=== PATIENT | female | born 1980 | race Caucasian/White ===

== ENCOUNTER 2017-11-02 16:34 | Emergency (ER) | payer MEDICAID ==
[~2017-11-02] VITALS: Ht 165.1 cm; Wt 67.0 kg
[2017-11-02 16:51] VITALS: BP 118/73
[2017-11-02 17:08] LABS: AMPHETAMINE SCREEN, URINE Positive (Negative); BARBITURATE SCREEN, URINE Negative (Negative); BENZODIAZEPINE SCREEN, URINE Negative (Negative); CANNABINOID SCREEN, URINE Positive (Negative); COCAINE SCREEN, URINE Negative (Negative); METHADONE SCREEN, URINE Negative (Negative); OPIATE SCREEN, URINE Negative (Negative)
[2017-11-02] MEDS ORDERED: LORA-446 PO (17:12)
[2017-11-02] MEDS ORDERED: QUET300T5 PO (17:12)
[2017-11-02 17:14] LABS: MICROSCOPIC INDICATED
[2017-11-02 17:17] LABS: BASOPHILS # (AUTO) 0.05 x10^3/uL (0-0.1); BASOPHILS % (AUTO) 1 % (0-1); EOSINOPHILS # (AUTO) 0.18 x10^3/uL (0-0.4); EOSINOPHILS % (AUTO) 2 % (1-7); LYMPHOCYTES # (AUTO) 2.12 x10^3/uL (1-3.4); LYMPHOCYTES % (AUTO) 27 % (22-44); MD NO; MEAN CORPUSCULAR HEMOGLOBIN 30.4 pg (27.0-34.8); MEAN CORPUSCULAR HGB CONC 33.2 g/dL (32.4-35.8); MEAN CORPUSCULAR VOLUME 91.7 fL (80-100); MEAN PLATELET VOLUME 7.2 fL (7.4-10.4); MONOCYTES # (AUTO) 0.81 x10^3/uL (0.2-0.8); MONOCYTES % (AUTO) 10 % (2-9); NEUTROPHILS # (AUTO) 4.75 x10^3/uL (1.8-6.8); NEUTROPHILS % (AUTO) 60 % (42-75); PLATELET COUNT 368 x10^3/uL (130-400); RED BLOOD COUNT 4.66 x10^6/uL (3.82-5.3); RED CELL DISTRIBUTION WIDTH 13.7 % (9.6-15.2)
[2017-11-02 17:22] LABS: CULTURE INDICATED? YES
[2017-11-02 17:26] LABS: ALBUMIN 3.6 g/dL (3.4-5.0); ANION GAP 6 mmol/L (5-15); CALCIUM 8.5 mg/dL (8.5-10.1); CHLORIDE 104 mmol/L (98-107)
[2017-11-02 17:27] LABS: SALICYLATE LEVEL < 1.7 mg/dL (2.8-20.0)
[2017-11-02 17:32] LABS: ACETAMINOPHEN < 2 mcg/mL (10-30); ALANINE AMINOTRANSFERASE 133 U/L (12-78); ALKALINE PHOSPHATASE 72 U/L (45-117); BILIRUBIN,TOTAL 0.6 mg/dL (0.2-1.0); TOTAL PROTEIN 7.3 g/dL (6.4-8.2)
[2017-11-02] MEDS ORDERED: LORazepam 1MG TABLET PO ONE (18:30)
[2017-11-02] MEDS ORDERED: LORazepam 1MG TABLET ONE (18:41)
== END 2017-11-02 19:52 | disposition home or self-care (01) ==
LOC: ED 19:10
DX: F41.1 Generalized anxiety disorder (principal); R06.4 Hyperventilation; Z87.891 Personal history of nicotine dependence
CPT/HCPCS: 36415; 80053; 80307; 80329; 81001; 84703; 85025; 87086; 99284; G0480

== ENCOUNTER 2017-11-20 15:25 | Emergency (ER) | payer MEDICAID ==
[~2017-11-20] VITALS: Ht 165.1 cm; Wt 65.0 kg
[~2017-11-20 15:25] MED LIST: LORA-446 PO; QUET300T5 PO
[2017-11-20 15:29] VITALS: BP 117/72
== END 2017-11-20 15:55 | disposition home or self-care (01) ==
LOC: ED 15:49
DX: L03.113 Cellulitis of right upper limb (principal); F19.90 Other psychoactive substance use, unspecified, uncomplicated
CPT/HCPCS: 99283

== ENCOUNTER 2018-10-05 00:17 | Emergency (ER) | payer MEDICAID ==
[~2018-10-05] VITALS: Ht 165.1 cm; Wt 63.0 kg
--- NOTE | 2018-10-05 00:48 | NUR ---
Assessment made. seen by ERP.
[2018-10-05] MEDS ORDERED: LIDOCAINE-MPF 1%, 5ML ONE (00:49)
--- NOTE | 2018-10-05 00:53 | NUR ---
PA at bedside for I & D.
[2018-10-05] MEDS ORDERED: HYDROcodone/APAP 5/325 TABLET PO ONE (01:00)
[2018-10-05] MEDS ORDERED: CLINDAMYCIN 300 MG CAPSULE PO ONE (01:00)
[2018-10-05] MEDS ORDERED: LIDOCAINE 1%, 10ML INFIL ONE (01:00)
[2018-10-05] MEDS ORDERED: CLINDAMYCIN 300 MG CAPSULE ONE (01:07)
[2018-10-05] MEDS ORDERED: HYDROcodone/APAP 5/325 TABLET ONE (01:07)
--- NOTE | 2018-10-05 01:19 | NUR ---
I & D done. medicated. patient discharged with prescriptions and instruction. verbalized understanding.
[2018-10-05 01:20] VITALS: BP 137/86
== END 2018-10-05 01:22 | disposition home or self-care (01) ==
LOC: ED 00:54
DX: N76.4 Abscess of vulva (principal); F15.10 Other stimulant abuse, uncomplicated; Z72.9 Problem related to lifestyle, unspecified; F17.200 Nicotine dependence, unspecified, uncomplicated
CPT/HCPCS: 56405; 93005; 99284; J3490

== ENCOUNTER 2018-11-10 12:16 | Inpatient (IN) | payer MEDICAID ==
[~2018-11-10] VITALS: Ht 165.1 cm; Wt 64.2 kg
--- NOTE | 2018-11-10 12:37 | NUR ---
SUPPLIES IN ROOM SECURED BEHIND PULL-DOWN DOOR. SITTER IN DIRECT VIEW OF PT
[2018-11-10 13:08] LABS: BASOPHILS # (AUTO) 0.04 x10^3/uL (0-0.1); BASOPHILS % (AUTO) 0 % (0-1); EOSINOPHILS # (AUTO) 0.11 x10^3/uL (0-0.4); EOSINOPHILS % (AUTO) 1 % (1-7); LYMPHOCYTES # (AUTO) 1.53 x10^3/uL (1-3.4); LYMPHOCYTES % (AUTO) 14 % (22-44); MD NO; MEAN CORPUSCULAR HEMOGLOBIN 31.1 pg (27.0-34.8); MEAN CORPUSCULAR VOLUME 94.4 fL (80-100); MEAN PLATELET VOLUME 6.6 fL (7.4-10.4); MONOCYTES # (AUTO) 0.86 x10^3/uL (0.2-0.8); MONOCYTES % (AUTO) 8 % (2-9); NEUTROPHILS # (AUTO) 8.53 x10^3/uL (1.8-6.8); NEUTROPHILS % (AUTO) 77 % (42-75); PLATELET COUNT 366 x10^3/uL (130-400); RED BLOOD COUNT 5.03 x10^6/uL (3.82-5.3); RED CELL DISTRIBUTION WIDTH 13.8 % (9.6-15.2)
--- NOTE | 2018-11-10 13:14 | NUR ---
KATHARINE LOYA. PT IN ROOM AT THIS TIME. SITTER IN HALLWAY. UA COLLECTED AND SENT. MEAL TRAY PROVIDED TO PT.
[2018-11-10 13:18] LABS: ALANINE AMINOTRANSFERASE 118 U/L (12-78); ALBUMIN 3.9 g/dL (3.4-5.0); ANION GAP 6 mmol/L (5-15); CHLORIDE 108 mmol/L (98-107); CREATININE 0.85 mg/dL (0.55-1.02)
[2018-11-10 13:19] LABS: SALICYLATE LEVEL < 1.7 mg/dL (2.8-20.0)
[2018-11-10 13:23] LABS: ALKALINE PHOSPHATASE 71 U/L (45-117); BILIRUBIN,TOTAL 0.6 mg/dL (0.2-1.0); TOTAL PROTEIN 8.2 g/dL (6.4-8.2)
[2018-11-10 13:53] LABS: AMPHETAMINE SCREEN, URINE Positive (Negative); BARBITURATE SCREEN, URINE Negative (Negative); BENZODIAZEPINE SCREEN, URINE Positive (Negative); CANNABINOID SCREEN, URINE Positive (Negative); COCAINE SCREEN, URINE Negative (Negative); METHADONE SCREEN, URINE Negative (Negative); OPIATE SCREEN, URINE Negative (Negative)
--- NOTE | 2018-11-10 14:10 | NUR ---
TO CT WITH RN
[2018-11-10 14:28] LABS: CULTURE INDICATED? YES; MICROSCOPIC AUTO
[2018-11-10] MEDS ORDERED: CEFDINIR 300 MG CAPSULE ONE (14:51)
--- NOTE | 2018-11-10 14:59 | NUR ---
[facility] called as patient has medicaid HPN insurance. All information provided and awaiting a call back at this time for ETA of mobile assesser.
[2018-11-10] MEDS ORDERED: CEFDINIR 300 MG CAPSULE PO ONE (15:00)
--- NOTE | 2018-11-10 15:01 | NUR ---
MEDICATED PER MAR. PROVIDED WARM BLANKETS
--- NOTE | 2018-11-10 15:02 | NUR ---
Patient with medicaid expansion. Will call other service at this time.
--- NOTE | 2018-11-10 15:08 | NUR ---
Medicaid HPN exansion called and mobile assesser requested
--- NOTE | 2018-11-10 16:23 | NUR ---
Mobile asseser in ED evaluating patient.
--- NOTE | 2018-11-10 16:32 | NUR ---
[facility] PSYCHIATRIST EVALUATING PT
[2018-11-10] MEDS ORDERED: LORazepam 1MG TABLET ONE (17:07)
--- NOTE | 2018-11-10 17:12 | NUR ---
PT CRYING SINCE PSYCHIATRIST SPEAKING WITH HER. ASKING FOR SOMETHING FOR ANXIETY. MEDICATED PER MAR
[2018-11-10] MEDS ORDERED: LORazepam 1MG TABLET PO ONE (17:30)
--- NOTE | 2018-11-10 17:56 | NUR ---
PT PROVIDED LUNCH TRAY. CRYING SLOWED DOWN
--- NOTE | 2018-11-10 18:42 | NUR ---
AFTER EATING DINNER, PT BACK TO SLEEP
--- NOTE | 2018-11-10 19:00 | NUR ---
REPORT RC'VD FROM ANN MARIE LOYA. PT RESTING IN [facility], NO S/S OF DISTRESS AT THIS TIME.
[2018-11-10] MEDS ORDERED: QUETIAPINE 25MG TABLET PO PRN (19:30)
[2018-11-10] MEDS ORDERED: QUETIAPINE 100MG TABLET ONE (20:20)
[2018-11-10] MEDS ORDERED: NICOTINE 21 MG/24 HR PATCH.TD24 ONE (20:20)
[2018-11-10] MEDS ORDERED: DIVALPROEX 500 MG TAB.ER.24H ONE (20:20)
[2018-11-10] MEDS ORDERED: NICOTINE 14MG/24 HR PATCH.TD24 ONE (20:21)
[2018-11-10] MEDS ORDERED: NICOTINE 14MG/24 HR PATCH.TD24 TD PRN (20:30)
[2018-11-10] MEDS: DIVALPROEX 500 MG TAB.ER.24H PO SCH (21:53)
[2018-11-10] MEDS: QUETIAPINE 100MG TABLET PO SCH (21:53)
--- NOTE | 2018-11-10 21:59 | NUR ---
PT REQUESTING TO HAVE IV OUT; OKAY TO REMOVE PER DR. VEGA. PT REFUSED 300MG OF SEROQUEL, STATES, "IT KNOCKS ME OUT". AGREED TO TAKE 200MG.
[2018-11-10] MEDS ORDERED: ACETAMINOPHEN 325 MG TABLET PO PRN (22:00)
[2018-11-11 00:45] VITALS: BP 124/82
[2018-11-11 07:56] VITALS: BP 106/74
[2018-11-11] MEDS: DIVALPROEX 500 MG TAB.ER.24H PO SCH ×2 (08:25→20:49)
[2018-11-11] MEDS ORDERED: CEFDINIR 300 MG CAPSULE PO ONE (09:00)
[2018-11-11 19:18] VITALS: BP 115/81
[2018-11-11] MEDS: CEFDINIR 300 MG CAPSULE PO SCH (20:49)
[2018-11-11] MEDS: QUETIAPINE 100MG TABLET PO SCH (20:50)
[2018-11-11] MEDS ORDERED: QUETIAPINE 100MG TABLET PO SCH (21:00)
[2018-11-12] MEDS: DIVALPROEX 500 MG TAB.ER.24H PO SCH ×2 (08:04→19:54)
[2018-11-12] MEDS: CEFDINIR 300 MG CAPSULE PO SCH (08:04)
[2018-11-12 08:05] VITALS: BP 93/59
[2018-11-12] MEDS: BUPROPION SR 150 MG TABLET PO SCH (13:04)
[2018-11-12] MEDS: ERTAPENEM 1 GM in SODIUM CHLORIDE 0.9% 50 ML IV SCH (17:26)
[2018-11-12 19:28] VITALS: BP 102/67
[2018-11-12] MEDS: LORazepam 1MG TABLET PO PRN (19:54)
[2018-11-12] MEDS: QUETIAPINE 100MG TABLET PO SCH (19:54)
[2018-11-13] MEDS: ROPINIROLE 0.25MG TABLET PO PRN ×2 (00:03→20:15)
[2018-11-13] MEDS: LORazepam 1MG TABLET PO PRN ×3 (01:14→20:15)
[2018-11-13 01:27] VITALS: BP 98/64
[2018-11-13 07:00] VITALS: BP 111/72
[2018-11-13] MEDS: DIVALPROEX 500 MG TAB.ER.24H PO SCH ×2 (10:08→20:15)
[2018-11-13] MEDS: BUPROPION SR 150 MG TABLET PO SCH (10:08)
[2018-11-13] MEDS: ERTAPENEM 1 GM in SODIUM CHLORIDE 0.9% 50 ML IV SCH (16:11)
[2018-11-13] MEDS: QUETIAPINE 100MG TABLET PO SCH (20:14)
[2018-11-13 20:18] VITALS: BP 114/75
[2018-11-14 01:01] VITALS: BP 116/78
[2018-11-14 08:07] LABS: BASOPHILS # (AUTO) 0.03 x10^3/uL (0-0.1); BASOPHILS % (AUTO) 1 % (0-1); EOSINOPHILS # (AUTO) 0.11 x10^3/uL (0-0.4); EOSINOPHILS % (AUTO) 2 % (1-7); LYMPHOCYTES # (AUTO) 1.46 x10^3/uL (1-3.4); LYMPHOCYTES % (AUTO) 28 % (22-44); MD NO; MEAN CORPUSCULAR HEMOGLOBIN 30.6 pg (27.0-34.8); MEAN CORPUSCULAR HGB CONC 33.1 g/dL (32.4-35.8); MEAN CORPUSCULAR VOLUME 92.5 fL (80-100); MEAN PLATELET VOLUME 6.6 fL (7.4-10.4); MONOCYTES % (AUTO) 11 % (2-9); NEUTROPHILS # (AUTO) 3.05 x10^3/uL (1.8-6.8); NEUTROPHILS % (AUTO) 58 % (42-75); PLATELET COUNT 365 x10^3/uL (130-400); RED BLOOD COUNT 4.51 x10^6/uL (3.82-5.3); RED CELL DISTRIBUTION WIDTH 13.6 % (9.6-15.2)
[2018-11-14 08:17] LABS: ALANINE AMINOTRANSFERASE 211 U/L (12-78); ALBUMIN 3.1 g/dL (3.4-5.0); ANION GAP 7 mmol/L (5-15); CALCIUM 8.7 mg/dL (8.5-10.1); CHLORIDE 106 mmol/L (98-107); CREATININE 0.68 mg/dL (0.55-1.02)
[2018-11-14 08:19] LABS: ALKALINE PHOSPHATASE 60 U/L (45-117); BILIRUBIN,TOTAL 0.4 mg/dL (0.2-1.0); TOTAL PROTEIN 7.4 g/dL (6.4-8.2)
[2018-11-14 08:45] VITALS: BP 95/63
[2018-11-14] MEDS: DIVALPROEX 500 MG TAB.ER.24H PO SCH ×2 (09:00→20:10)
[2018-11-14] MEDS: BUPROPION SR 150 MG TABLET PO SCH (09:11)
[2018-11-14] MEDS: LORazepam 1MG TABLET PO PRN ×2 (09:16→16:58)
[2018-11-14 12:16] VITALS: BP 97/64
[2018-11-14] MEDS: ERTAPENEM 1 GM in SODIUM CHLORIDE 0.9% 50 ML IV SCH (16:58)
[2018-11-14 19:35] VITALS: BP 100/62
[2018-11-14] MEDS: QUETIAPINE 100MG TABLET PO SCH (20:10)
[2018-11-14] MEDS: ROPINIROLE 0.25MG TABLET PO PRN (20:10)
[2018-11-14] MEDS ORDERED: ROPINIROLE 0.5MG TABLET PO PRN (23:30)
[2018-11-14] MEDS ORDERED: ROPINIROLE 0.25MG TABLET PO ONE (23:30)
[2018-11-15 04:34] VITALS: BP 100/68
[2018-11-15 07:39] VITALS: BP 111/73
[2018-11-15] MEDS: LORazepam 1MG TABLET PO PRN ×2 (09:13→17:32)
[2018-11-15] MEDS: DIVALPROEX 500 MG TAB.ER.24H PO SCH (09:13)
[2018-11-15] MEDS: BUPROPION SR 150 MG TABLET PO SCH (09:13)
[2018-11-15] MEDS ORDERED: ACETAMINOPHEN 325 MG TABLET PO PRN (11:00)
[2018-11-15] MEDS ORDERED: ACETAMINOPHEN 325 MG TABLET ONE (11:04)
[2018-11-15 14:44] VITALS: BP 116/76
[2018-11-15] MEDS: ERTAPENEM 1 GM in SODIUM CHLORIDE 0.9% 50 ML IV SCH (17:32)
[2018-11-15 19:22] VITALS: BP 109/77
[2018-11-15] MEDS: QUETIAPINE 100MG TABLET PO SCH (20:03)
[2018-11-16 02:13] VITALS: BP 104/71
[2018-11-16 07:10] VITALS: BP 114/79
[2018-11-16] MEDS: LORazepam 1MG TABLET PO PRN ×2 (09:54→17:02)
[2018-11-16] MEDS: BUPROPION SR 150 MG TABLET PO SCH (09:54)
[2018-11-16 12:35] VITALS: BP 103/69
[2018-11-16] MEDS: ERTAPENEM 1 GM in SODIUM CHLORIDE 0.9% 50 ML IV SCH (17:01)
== END 2018-11-16 19:30 | DRG 885 ==
LOC: ED 14:32 → EDIP 21:59 → 2N 23:30 → 3NE 11-12 14:46
PROVIDERS: ADMIT Family Medicine; ATTEND Family Medicine
DX: F31.9 Bipolar disorder, unspecified (principal); F11.20 Opioid dependence, uncomplicated; F15.20 Other stimulant dependence, uncomplicated; N39.0 Urinary tract infection, site not specified; R45.851 Suicidal ideations; B19.20 Unspecified viral hepatitis C without hepatic coma; F17.210 Nicotine dependence, cigarettes, uncomplicated; F41.0 Panic disorder [episodic paroxysmal anxiety]; F41.1 Generalized anxiety disorder; K76.0 Fatty (change of) liver, not elsewhere classified; N94.6 Dysmenorrhea, unspecified; S00.11XA Contusion of right eyelid and periocular area, initial encounter; Y04.0XXA Assault by unarmed brawl or fight, initial encounter; Y93.89 Activity, other specified; Y92.89 Other specified places as the place of occurrence of the external cause; Y99.8 Other external cause status; Z59.0 Homelessness; Z79.899 Other long term (current) drug therapy; Z16.12 Extended spectrum beta lactamase (ESBL) resistance
CPT/HCPCS: 36415; 70486; 76700; 80053; 80074; 80307; 81001; 84703; 85025; 87040; 87077; 87086; 87184; 87186; 87521; 87806; 99285; G0378; J1335; G0475

== ENCOUNTER 2019-07-13 11:30 | Emergency (ER) | payer MEDICAID ==
[~2019-07-13] VITALS: Ht 165.1 cm; Wt 64.0 kg
[2019-07-13 12:10] VITALS: BP 150/96
[2019-07-13 12:53] LABS: BASOPHILS # (AUTO) 0.04 x10^3/uL (0-0.1); BASOPHILS % (AUTO) 1 % (0-1); EOSINOPHILS % (AUTO) 1 % (1-7); LYMPHOCYTES # (AUTO) 1.66 x10^3/uL (1-3.4); LYMPHOCYTES % (AUTO) 19 % (22-44); MD NO; MEAN CORPUSCULAR HEMOGLOBIN 28.7 pg (27.0-34.8); MEAN CORPUSCULAR HGB CONC 32.8 g/dL (32.4-35.8); MEAN CORPUSCULAR VOLUME 87.4 fL (80-100); MEAN PLATELET VOLUME 6.6 fL (7.4-10.4); MONOCYTES # (AUTO) 0.65 x10^3/uL (0.2-0.8); MONOCYTES % (AUTO) 8 % (2-9); NEUTROPHILS # (AUTO) 6.19 x10^3/uL (1.8-6.8); NEUTROPHILS % (AUTO) 72 % (42-75); PLATELET COUNT 440 x10^3/uL (130-400); RED BLOOD COUNT 4.78 x10^6/uL (3.82-5.3); RED CELL DISTRIBUTION WIDTH 16.2 % (9.6-15.2)
--- NOTE | 2019-07-13 13:01 | NUR ---
PT TO ED WITH SI AND PREVIOUS SA, PT STATES SHE WOULD OVERDOSE ON HEROIN AND HAS ATTEMPTED TO DO SO IN THE PAST. ALL BELONGINGS REMOVED AND ONE BAG PLACED IN LOCKER. BF AT BEDSIDE. PT GIVEN MENSTRUAL PADS. SITTER AT DOORWAY. URINE SAMPLE WALKED TO LAB.
[2019-07-13 13:02] LABS: ALBUMIN 3.3 g/dL (3.4-5.0); ANION GAP 4 mmol/L (5-15); CALCIUM 8.5 mg/dL (8.5-10.1); CHLORIDE 111 mmol/L (98-107); CREATININE 0.63 mg/dL (0.55-1.02)
[2019-07-13 13:13] LABS: AMPHETAMINE SCREEN, URINE Positive (Negative); BARBITURATE SCREEN, URINE Negative (Negative); BENZODIAZEPINE SCREEN, URINE Negative (Negative); CANNABINOID SCREEN, URINE Positive (Negative); COCAINE SCREEN, URINE Negative (Negative); METHADONE SCREEN, URINE Negative (Negative); OPIATE SCREEN, URINE Negative (Negative)
[2019-07-13 13:19] LABS: SALICYLATE LEVEL < 1.7 mg/dL (2.8-20.0)
--- NOTE | 2019-07-13 15:10 | NUR ---
THROUGH PUT RN: FAXED PACKET TO [facility], [facility], AND [facility].
--- NOTE | 2019-07-13 16:53 | NUR ---
KATIE Gomez RN called to state facility is accepting pt and accepting provider is MD Wade.
--- NOTE | 2019-07-13 17:11 | NUR ---
REPORT TO LILIA LOYA AT [facility]
[2019-07-13] MEDS ORDERED: IBUPROFEN 200 MG TABLET ONE (17:49)
--- NOTE | 2019-07-13 17:54 | NUR ---
DINNER TRAY SERVED TO PATIENT. PATIENT ASKING FOR IBUPROFEN FOR TANNER AND MENSTRUAL CRAMPS. DR. VEGA NOTIFIED. IBUPROFEN ORDERD AND GIVEN.
[2019-07-13] MEDS ORDERED: IBUPROFEN 600 MG TABLET PO ONE (18:00)
[2019-07-13] MEDS ORDERED: QUETIAPINE 100MG TABLET PO SCH (21:00)
[2019-07-14] MEDS ORDERED: ARIPIPRAZOLE 5 MG TABLET PO SCH (09:00)
== END 2019-07-13 19:08 ==
LOC: ED 13:26
DX: R45.851 Suicidal ideations (principal)
CPT/HCPCS: 36415; 80048; 80307; 82040; 84703; 85025; 99285

== ENCOUNTER 2019-10-02 17:33 | Emergency (ER) | payer MEDICAID ==
[~2019-10-02] VITALS: Ht 165.1 cm; Wt 68.5 kg
[2019-10-02 17:35] VITALS: BP 114/89
--- NOTE | 2019-10-02 18:00 | NUR ---
THIS IS A 38 YO FEMALE WHO PRESENTS TO THE ER C/O ENLARGED LYMPHNODE TO LEFT GROIN AND SORES ON PERINEUM BETWEEN RECTUM AND VAGINA THAT APPEAR RAISED AND HAVE WHITE EXUDATE X A FEW DAYS. PT AO X 4. RESP EVEN AND UNLABORED. CLAL LIGHT WITHIN REACH. WILL CONT TO MONITOR PT.
== END 2019-10-02 19:17 | disposition home or self-care (01) ==
LOC: ED 18:03
DX: A60.04 Herpesviral vulvovaginitis (principal); F17.200 Nicotine dependence, unspecified, uncomplicated; Z90.49 Acquired absence of other specified parts of digestive tract
CPT/HCPCS: 99283

== ENCOUNTER 2020-11-24 03:37 | Emergency (ER) | payer MEDICAID ==
[~2020-11-24] VITALS: Ht 165.1 cm; Wt 72.0 kg
--- NOTE | 2020-11-24 03:52 | NUR ---
pt refusing IV and refusing lab draw. pt states "I just want to lay here and poop in my pants until I feel better" pt states she didnt want to come here but staff at [facility] forced here to be seen in the ER. Dori and Bhavik notified and said as long as her vitals remain WDL, we do not have to be aggressive about obtaining labs and starting an IV. pt placed on all monitors and given the call light. I encourage pt to call me with the call light so I can help her to the bathroom so as not to make a mess all over the bed.
[2020-11-24] MEDS ORDERED: SODIUM CHLORIDE FLUSH 10ML SYR IVF ONE (04:00)
[2020-11-24] MEDS ORDERED: SODIUM CHLORIDE 0.9% 1,000ML IVBOLUS ONE (04:00)
[2020-11-24 05:09] VITALS: BP 104/65
[2020-11-24] MEDS ORDERED: LOPERAMIDE 2 MG CAPSULE ONE (05:37)
[2020-11-24] MEDS ORDERED: LOPERAMIDE 1 MG/5 ML, 10ML UDC PO ONE (06:00)
--- NOTE | 2020-11-24 06:27 | NUR ---
REPORT SHALINI DE DIOS. PATIENT WILL BE ACCEPTED BACK TO [facility]. PATIENT WILL BE PLACED IN A TAXI CAB TO BE TRANSPORTED BACK TO [facility] SAFELY.
--- NOTE | 2020-11-24 06:30 | NUR ---
I CALLED [facility] AND SPOKE WITH THE RN TAKING CARE OF PT. HE STATES OK TO SEND PT BACK PENDING MED CLEARANCE.
--- NOTE | 2020-11-24 06:45 | NUR ---
BLOWER INSTALLER RN: PATIENT BEING SHOWERED AND GIVEN APPROPRIATE CLOTHING AND RESOURCES FOR DISCHARGE.
--- NOTE | 2020-11-24 06:49 | NUR ---
CAN CLOSING MACHINE TENDER RN: PT IS A VOLUNTARY ADMISSION AT [facility], PATIENT HAS BEEN GIVEN TAXI VOUCHER TO BE RETURNED TO [facility] SAFELY. [facility] IS AWARE AND WILL BE AWAITING PATIENT'S ARRIVAL.
--- NOTE | 2020-11-24 06:52 | NUR ---
pt reports feeling much better and is comfortable with dc plan.
== END 2020-11-24 08:41 ==
LOC: ED 05:00
DX: R19.7 Diarrhea, unspecified (principal); R53.1 Weakness
CPT/HCPCS: 99283

== ENCOUNTER 2020-12-05 01:37 | Emergency (ER) | payer MEDICAID ==
[~2020-12-05] VITALS: Ht 165.1 cm; Wt 78.5 kg
--- NOTE | 2020-12-05 02:10 | NUR ---
Note margie in ED - 12/05/20 at 0214 by DIVINA cyanide furnace operator: Patient given discharge instructions and they have confirmed that they understand the instructions. Patient ambulatory with steady gait. NAD, all questions answered appropriately, denies additional needs at this time. No personal belongings left in room after discharge.
--- NOTE | 2020-12-05 02:15 | NUR ---
pt eloped prior to receiving dc paperwork. NIL when called back for dc at this time.
== END 2020-12-05 02:35 | disposition left against medical advice (07) ==
LOC: ED 02:15
DX: A60.04 Herpesviral vulvovaginitis (principal)
CPT/HCPCS: 99283

== ENCOUNTER 2020-12-06 12:19 | Emergency (ER) | payer MEDICAID ==
[~2020-12-06] VITALS: Ht 165.1 cm; Wt 78.0 kg
[2020-12-06 12:52] VITALS: BP 123/81
--- NOTE | 2020-12-06 16:31 | NUR ---
DC INSTRUCTIONS REVIEWED
== END 2020-12-06 16:32 | disposition home or self-care (01) ==
LOC: ED 13:52
DX: A60.04 Herpesviral vulvovaginitis (principal)
CPT/HCPCS: 99283